=== PATIENT | female | born 1955 | race Caucasian/White ===

== ENCOUNTER 2020-08-02 12:59 | Outpatient (CLI) | payer MEDICARE, SELFPAY ==
--- NOTE | 2020-08-02 | XR_ITS ---
WS: [id number] Bone mineral density performed on a [employer], 08/02/2020 Clinical data: POST MENOPAUSE Findings: The first 4 lumbar vertebral bodies demonstrated the bone mineral density of 0.987 g/cm2 for a young adult T score of -1.6. Measurement of the left hip reveals a bone mineral density of 0.786 g/cm2 with a young adult T score of -1.8. Measurement of the right hip reveals the bone mineral density of 0.829 g/cm2 for young adult T score of -1.4. XR/XR DEXA axial skeleton* [id number] Impression: 1. Osteopenia of the lumbar spine. 2. Osteopenia of both hips.
--- NOTE | 2020-08-02 13:08 | MM_ITS ---
WS: [id number] BILATERAL DIGITAL SCREENING MAMMOGRAPHY WITH CAD CLINICAL INFORMATION: SCREENING HISTORY: Screening mammogram. No current complaints. COMPARISON: TECHNIQUE: Bilateral CC and MLO views. FINDINGS: The breasts are composed of heterogeneous fibroglandular density tissue, which can limit the detectio n of small underlying mass lesions. No suspicious mass, asymmetry, calcifications, or architectural d istortion. No evidence of malignancy. Stable punctate and secretory calcifications. Lucent centered c alcifications. Stable asymmetric nodular densities inferior left breast. MM/[place] [id number] IMPRESSION: BI-RADS: 2-Benign FOLLOW UP: 1 Year Follow-up Recommend return to annual screening mammography.
== END 2020-08-02 13:00 | disposition home or self-care (01) ==
PROVIDERS: PCP Nurse Practitioner; Visit Provider Nurse Practitioner
DX: Z12.31 Encounter for screening mammogram for malignant neoplasm of breast (principal); Z78.0 Asymptomatic menopausal state; M85.89 Other specified disorders of bone density and structure, multiple sites
CPT/HCPCS: 77067; 77080

== ENCOUNTER 2022-02-18 08:23 | Outpatient (CLI) | payer MEDICARE, SELFPAY ==
--- NOTE | 2022-02-18 08:41 | MR_ITS ---
WS: [id number] MRI LUMBAR SPINE WITH CONTRAST TECHNIQUE: Sagittal T1, T2 and STIR imaging. Axial T1 and T2 imaging. Post gadolinium imaging was obt ained. CLINICAL INFORMATION: LOW BACK PAIN W/RADIATION COMPARISON: None. FINDINGS: Mild lumbar curve. No acute compression. Slight retrolisthesis L2 on L3. Mild disc bulging L3-L4 with a prominent LEFT pericentral disc protrusion. Moderate to severe central canal stenosis. Impingement traversing LEFT L4 nerve root in the subarticular recess. L1-L2: Normal. L2-L3: Slight retrolisthesis. Mild annular bulging. Slight impingement on the subarticular recess and traversing L3 nerve roots bilaterally. Tiny RIGHT foraminal protrusion with mild RIGHT foraminal jose antonio rowing. LEFT foramen is patent. Moderate facet arthropathy. L3-L4: LEFT pericentral disc protrusion impinges the LEFT subarticular recess and traversing LEFT L4 nerve root. Moderate to severe central canal stenosis. Small RIGHT foraminal protrusion with moderate RIGHT foraminal narrowing. LEFT foramen is patent. Moderate facet arthropathy with ligamentum flavum flavum hypertrophy. L4-L5: Mild annular bulging. Slight impingement traversing L5 nerve roots LEFT greater than RIGHT. Mo derate facet arthropathy. Foramen are patent. L5-S1: Mild annular bulging. Moderate facet arthropathy. Spinal canal and foramen are patent. Bilateral renal cysts the largest in the RIGHT measuring 2.1 CM. Smaller bilateral renal cysts. MR/MR lumbar spine wo/w con [id number] IMPRESSION: 1. Mild lumbar curve. No acute compression. 2. LEFT pericentral disc protrusion L3-L4 impinges the traversing LEFT L4 nerv e root in the subarticular recess. Moderate to severe central canal stenosis at this level. Recommend correlation LEFT L4 nerve root symptoms. 3. Small RIGHT foraminal protrusion L3-L4 with moderate RIGHT foraminal narrow ing and slight contact of the exiting L3 nerve root. 4. Narrowing of the subarticular recess L2-L3 with encroachment traversing L3 nerve roots. 5. Small RIGHT foraminal protrusion L2-L3 with mild RIGHT foraminal narrowing. 6. Narrowing of the subarticular recess LEFT greater than RIGHT L4-L5 due to m ild annular bulging. 7. No abnormal gadolinium enhancement.
== END 2022-02-18 08:24 | disposition home or self-care (01) ==
PROVIDERS: PCP Nurse Practitioner; Visit Provider Nurse Practitioner
DX: M54.40 Lumbago with sciatica, unspecified side (principal); M51.16 Intervertebral disc disorders with radiculopathy, lumbar region; M48.061 Spinal stenosis, lumbar region without neurogenic claudication
CPT/HCPCS: 72158

== ENCOUNTER 2025-09-12 08:51 | Outpatient (CLI) | payer MEDICARE, SELFPAY ==
--- NOTE | 2025-09-12 09:00 | MM_ITS ---
WS: [id number] BILATERAL 3D TOMOSYNTHESIS DIGITAL SCREENING MAMMOGRAPHY WITH CAD CLINICAL INFORMATION: SCREENING HISTORY: Screening mammogram. No current complaints. COMPARISON: 2020 TECHNIQUE: Bilateral CC and MLO views. FINDINGS: The breasts are composed of heterogeneous fibroglandular density tissue, which can limit the detection of small underlying mass lesions. Secretory calcifications. Punctate and lucent centered calcifications. Vascular calcifications. Area of architectural distortion in the upper outer RIGHT breast. Recommend RIGHT breast diagnostic mammography and ultrasound if persistent. Unremarkable LEFT breast. MM/MM [facility] tomosynthesis [id number] IMPRESSION: DENSITY: The breasts are heterogeneously dense, which may obscure small masses. BI-RADS: 0 - Incomplete: Need additional imaging evaluation FOLLOW UP: Need Additional Imaging Recommend RIGHT breast diagnostic mammography and ultrasound if persistent.
== END 2025-09-12 08:52 | disposition home or self-care (01) ==
LOC: MOBLMAM 08:57
PROVIDERS: PCP Nurse Practitioner; Visit Provider Nurse Practitioner
DX: Z12.31 Encounter for screening mammogram for malignant neoplasm of breast (principal); R92.323 Mammographic fibroglandular density, bilateral breasts; R92.333 Mammographic heterogeneous density, bilateral breasts; R92.1 Mammographic calcification found on diagnostic imaging of breast
CPT/HCPCS: 77063; 77067